=== PATIENT | male | born 1960 | race Caucasian/White ===

== ENCOUNTER → 2022-10-09 | Outpatient (REF) | payer MEDICARE, MEDICAID ==
[2022-10-09 15:48] LABS: BASO # 0.1 10^3/uL (0.0-0.2); BASO % 0.9 % (0.0-1.0); C REACTIVE PROTEIN QUANTITATIV < 0.40 MG/DL (<1.0); COMPLEMENT C3 91.3 MG/DL (90.0-170.0); EOS # 0.2 10^3/uL (0.0-0.5); EOS % 2.8 % (0.0-3.0); HEMATOCRIT 43.1 % (42.0-52.0); HEMOGLOBIN 13.8 g/dl (13.5-17.5); LYMPH # 1.2 10^3/uL (1.5-5.0); LYMPH % 20.2 % (24.0-44.0); MEAN CORPUSCULAR HEMOGLOBIN 32.5 pg (27.0-33.0); MEAN CORPUSCULAR VOLUME 101.4 fl (80.0-96.0); MONO # 0.6 10^3/uL (0.0-0.8); MONO % 10.7 % (2.0-8.0); NEUTROPHILS # 3.8 10^3/uL (1.5-8.5); NEUTROPHILS % 64.9 % (36.0-66.0); PLATELET COUNT, AUTOMATED 454 10^3/uL (150-450); RED BLOOD COUNT 4.25 10^6/uL (4.30-6.10); WHITE BLOOD COUNT 5.8 10^3/uL (4.0-10.0)
[2022-10-09 15:49] LABS: COMPLEMENT C4 25.2 MG/DL (12-36)
[2022-10-09 15:50] LABS: ALBUMIN 3.8 G/DL (3.2-5.2); ALKALINE PHOSPHATASE 71 U/L (46-116); ALT/SGPT 17 U/L (7.0-40); AST/SGOT 16 U/L (<34); BILIRUBIN,TOTAL 0.2 MG/DL (0.3-1.2); BLOOD UREA NITROGEN 14 MG/DL (9-23); CALCIUM LEVEL 8.8 MG/DL (8.3-10.6); CARBON DIOXIDE LEVEL 30 MMOL/L (20-31); CHLORIDE LEVEL 105 MMOL/L (98-107); CREATININE FOR GFR 0.99 MG/DL (0.70-1.30); GLOMERULAR FILTRATION RATE > 60.0 (>49); GLUCOSE, FASTING 76 MG/DL (74-106); POTASSIUM SERUM 4.8 MMOL/L (3.5-5.1); SODIUM LEVEL 141 MMOL/L (136-145); TOTAL PROTEIN 6.2 G/DL (5.7-8.2)
[2022-10-09 16:12] LABS: ERYTHROCYTE SEDIMENTATION RATE 5 mm/hr (0-20)
[2022-10-11 10:07] LABS: ANTI DS-DNA AB Negative (Negative); COMPLEMENT TOTAL (CH50) 48 U/mL (>41)
== END ==
LOC: M SFHCRHEU 09:28
PROVIDERS: ATTEND Internal Medicine Rheumatology
DX: R76.8 Other specified abnormal immunological findings in serum (principal); M25.561 Pain in right knee; M25.562 Pain in left knee

== ENCOUNTER → 2023-06-22 | Outpatient (REF) | payer MEDICARE, MEDICAID | LOC: M SFHCDERM 08:26 | PROVIDERS: ATTEND Physician Assistant | DX: C44.519 Basal cell carcinoma of skin of other part of trunk (principal) ==

== ENCOUNTER → 2023-08-03 | Outpatient (CLI) | payer MEDICARE, MEDICAID ==
[2023-08-03 16:52] LABS: HEPATITIS C VIRUS ABY INDEX 0.02 INDEX (<0.8)
[2023-08-03 17:42] LABS: HIV SCREEN CENTAUR SOURCE NEGATIVE (NEGATIVE)
== END ==
LOC: M LAB 14:55
PROVIDERS: ATTEND Physician Assistant
DX: Z77.21 Contact with and (suspected) exposure to potentially hazardous body fluids (principal); D48.5 Neoplasm of uncertain behavior of skin

== ENCOUNTER → 2023-10-06 | Outpatient (REF) | payer MEDICARE, MEDICAID | LOC: M SFHCDERM 08:18 | PROVIDERS: ATTEND Physician Assistant | DX: C44.519 Basal cell carcinoma of skin of other part of trunk (principal) ==

== ENCOUNTER → 2023-10-22 | Outpatient (REF) | payer MEDICARE, MEDICAID ==
[2023-10-22 12:20] LABS: BASO % 0.3 % (0.0-1.0); HEMATOCRIT 45.1 % (42.0-52.0); HEMOGLOBIN 15.1 g/dl (13.5-17.5); LYMPH # 1.2 10^3/uL (1.5-5.0); LYMPH % 17.8 % (24.0-44.0); MEAN CORPUSCULAR HEMOGLOBIN 33.3 pg (27.0-33.0); MEAN CORPUSCULAR HGB CONC 33.5 g/dl (32.0-36.5); MEAN CORPUSCULAR VOLUME 99.6 fl (80.0-96.0); MONO # 0.6 10^3/uL (0.0-0.8); MONO % 8.8 % (2.0-8.0); NEUTROPHILS # 5.1 10^3/uL (1.5-8.5); NEUTROPHILS % 72.7 % (36.0-66.0); PLATELET COUNT, AUTOMATED 527 10^3/uL (150-450); RED BLOOD COUNT 4.53 10^6/uL (4.30-6.10)
[2023-10-22 12:31] LABS: ERYTHROCYTE SEDIMENTATION RATE 7 mm/hr (0-20)
[2023-10-22 12:40] LABS: ALKALINE PHOSPHATASE 98 U/L (46-116); ALT/SGPT 20 U/L (7.0-40); AST/SGOT 17 U/L (<34); BILIRUBIN,TOTAL 0.4 MG/DL (0.3-1.2); BLOOD UREA NITROGEN 12 MG/DL (9-23); CALCIUM LEVEL 9.4 MG/DL (8.3-10.6); CARBON DIOXIDE LEVEL 30 MMOL/L (20-31); CHLORIDE LEVEL 108 MMOL/L (98-107); COMPLEMENT C3 97.2 MG/DL (90.0-170.0); COMPLEMENT C4 28.7 MG/DL (12-36); CREATININE FOR GFR 0.98 MG/DL (0.70-1.30); GLOMERULAR FILTRATION RATE > 60.0 (>49); GLUCOSE, FASTING 69 MG/DL (74-106); POTASSIUM SERUM 4.7 MMOL/L (3.5-5.1); SODIUM LEVEL 139 MMOL/L (136-145); TOTAL PROTEIN 6.5 G/DL (5.7-8.2)
[2023-10-23 15:08] LABS: COMPLEMENT TOTAL (CH50) 58 U/mL (>41)
[2023-10-26 16:17] LABS: ANTI DS-DNA AB Positive (Negative)
== END ==
LOC: M SFHCRHEU 10:22
PROVIDERS: ATTEND Internal Medicine Rheumatology
DX: R76.8 Other specified abnormal immunological findings in serum (principal); M25.561 Pain in right knee; M25.562 Pain in left knee

== ENCOUNTER → 2023-12-03 | Outpatient (REF) | payer MEDICARE, MEDICAID | LOC: M SFHCDERM 12:13 | PROVIDERS: ATTEND Physician Assistant | DX: L02.91 Cutaneous abscess, unspecified (principal) ==

== ENCOUNTER → 2024-03-16 | Outpatient (REF) | payer MEDICARE, MEDICAID | LOC: M SFHCDERM 17:40 | PROVIDERS: ATTEND Physician Assistant | DX: L82.1 Other seborrheic keratosis (principal); D22.61 Melanocytic nevi of right upper limb, including shoulder ==

== ENCOUNTER → 2024-05-02 | Outpatient (REF) | payer MEDICARE, MEDICAID | LOC: M LAB REF 15:40 | PROVIDERS: ATTEND Surgery | DX: C43.61 Malignant melanoma of right upper limb, including shoulder (principal) ==

== ENCOUNTER → 2024-08-08 | Outpatient (REF) | payer MEDICARE, MEDICAID | LOC: M LAB REF 15:51 | PROVIDERS: ATTEND Surgery | DX: L82.1 Other seborrheic keratosis (principal); L90.5 Scar conditions and fibrosis of skin; D48.5 Neoplasm of uncertain behavior of skin ==